=== PATIENT | female | born 2000 | race Two or more races ===

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

== ENCOUNTER 2021-01-27 14:29 | Emergency (ER) | payer SELFPAY ==
[~2021-01-27] VITALS: Ht 167.6 cm; Wt 60.7 kg
[2021-01-27 14:43] VITALS: BP 115/82
--- NOTE | 2021-01-27 15:30 | NUR ---
PUBLISHING DIRECTOR: PT TO ROOM FROM JUAN MATA
== END 2021-01-27 16:29 | disposition home or self-care (01) ==
LOC: ED 16:10
DX: R19.7 Diarrhea, unspecified (principal); R10.9 Unspecified abdominal pain
CPT/HCPCS: 99281

== ENCOUNTER 2021-04-14 18:36 | Emergency (ER) | payer OTHER ==
[~2021-04-14] VITALS: Ht 167.6 cm; Wt 63.5 kg
--- NOTE | 2021-04-14 19:38 | NUR ---
Pt back from CT
[2021-04-14 20:21] VITALS: BP 127/65
== END 2021-04-14 20:41 | disposition home or self-care (01) ==
LOC: ED 19:21
DX: S09.90XA Unspecified injury of head, initial encounter (principal); M54.2 Cervicalgia; Y04.8XXA Assault by other bodily force, initial encounter; Y93.89 Activity, other specified; Y92.89 Other specified places as the place of occurrence of the external cause; Y99.8 Other external cause status
CPT/HCPCS: 70450; 70486; 72125; 93005; 99285